=== PATIENT | female | born 1965 | race American Indian/Alaskan Native ===

== ENCOUNTER 2018-03-28 11:03 | Outpatient (CLI) | payer BC ==
--- NOTE | 2018-03-28 12:20 | Mammography Report ---
Bilateral mammogram: Patient presents with chronic nonspecific bilateral breast pain. Breast reduction 1996. Routine views demonstrates mild architectural changes throughout both breasts consistent with reduction. There is an intermediate fibroglandular density pattern. It is generally symmetric in distribution. There is no focal mass and no focally architecturally suspicious finding. A small grouping of benign appearing calcifications are noted in the inferior left breast. No prior exam for comparison. CAD used Impressions: Benign findings. Postreduction changes. Recommendation: Clinical followup. Annual mammogram followup. Any additional evaluation at this time should be based on your concern. BI-RADS CATEGORY: 2 = Benign ACR BI-RADS MAMMOGRAPHIC CODES: 0 = Needs additional imaging evaluation; 1 = Negative; 2 = Benign; 3 = Probably benign; 4 = Suspicious; 5 = Malignant; 6 = Known biopsy-proven malignancy COMMENT: 1. Dense breast tissue, i.e., adenosis, fibrocystic changes, etc., may obscure an underlying neoplasm. 2. Approximately 10% of cancers are not detected with mammography. 3. A negative mammography report should not delay biopsy if a clinically suspicious mass is present.
== END 2018-03-28 11:04 | disposition home or self-care (01) ==
LOC: SPVWC 11:03
PROVIDERS: ATTEND Nurse Practitioner Gerontology
DX: N64.59 Other signs and symptoms in breast (principal)
CPT/HCPCS: 77066